=== PATIENT | female | born 1960 | race Caucasian/White ===

== ENCOUNTER 2018-08-17 14:02 | Outpatient (CLI) | payer BC | END 2018-08-17 14:03 | disposition home or self-care (01) | LOC: CTENTCT 14:02 | PROVIDERS: ATTEND Otolaryngology Plastic Surgery within the Head & Neck | DX: J32.9 Chronic sinusitis, unspecified (principal) | CPT/HCPCS: 70486 ==

== ENCOUNTER 2022-03-10 09:43 | Outpatient (CLI) | payer BC | END 2022-03-10 09:44 | disposition home or self-care (01) | LOC: BICMRI 09:43 | PROVIDERS: ATTEND Surgery | DX: N63.0 Unspecified lump in unspecified breast (principal) | CPT/HCPCS: 82565; C8908 ==